=== PATIENT | male | born 1990 | race Caucasian/White ===

== ENCOUNTER 2018-01-23 14:40 | Emergency (ER) | payer OTHER, SELFPAY ==
[2018-01-23] VITALS (10 sets, daily range): BP systolic 122–163; BP diastolic 51–89; PULSE 53–86; RESP 12–18; TEMP 36.6; O2SAT 96–100; BMI 26.6
--- NOTE | 2018-01-23 15:07 | EKG12_ITS ---
Test Reason : CP Blood Pressure : / mmHG Vent. Rate : 067 BPM Atrial Rate : 067 BPM P-R Int : 152 ms QRS Dur : 112 ms QT Int : 394 ms P-R-T Axes : 012 055 018 degrees QTc Int : 416 ms Normal sinus rhythm Normal ECG Confirmed by AMY ANDRES, DOC ([id number]), news video editor JUAN SAAVEDRA ([id number]) on 01/27/2018 2:26:55 PM Referred By: MICHEL Confirmed By:DOC REYES MD
--- NOTE | 2018-01-23 15:11 | RAD_ITS ---
STUDY: X-RAY CHEST REASON FOR EXAM: Male, 27 years old. Shortness of breath. Dyspnea. Chest pain. Difficulty swallowing. TECHNIQUE: Single AP portable view of the chest. COMPARISON: None. FINDINGS: The lungs are clear and expanded. There is no demonstrated pleural abnormality. Normal size heart. Normal mediastinum and luz. Normal visualized pulmonary arteries. Normal visualized aortic arch and descending thoracic aorta. Normal visualized thoracic spine. Normal visualized ribs, clavicles, and shoulders. There is no demonstrated abnormality of the visualized soft tissue structures of the upper abdomen. RAD/Chest 1 View (Portable) IMPRESSION: Normal x-ray examination of the chest. Electronically Signed: Rocco Rogers DO at 16:47 EDT Tel [phone], Service support ,
--- NOTE | 2018-01-23 15:17 | ED.VISSUMM ---
- ER Visit Summary Date of Service: 01/23/18 Chief Complaint: Difficulty swallowing History of Present Illness: The patient is a 27 M presents with difficulty swallowing. Patient states 6 days ago he was eating boneless chicken wings. He states he did not chew thoroughly and felt 1 of the chicken wings get stuck. He has had difficulty swallowing foods since that time. He is able to swallow liquids. Went to [place] the ED on Saturday and had a chest x-ray was which was unremarkable. He does not have a primary care physician. He continues to have difficulty swallowing foods. He complains of chest pain when he tries to swallow. He has mild shortness of breath. Denies other complaints. Physical Examination: Vitals are stable. Patient is afebrile. Alert no acute distress. HEENT exam is unremarkable. Neck is supple. Lungs are clear and equal bilaterally. Heart is regular rate and rhythm. Abdomen is soft nontender nondistended. Extremities are unremarkable. Skin is warm and dry. No focal neurologic deficit. Remainder of exam is unremarkable. Emergency Department Course and Treatment: Patient was given glucagon IM. CBC, chemistries unremarkable. Troponin is negative. EKG is sinus rate 67 no acute ischemic changes. Chest x-ray shows no acute process. Discussed with Dr. Elder and Suzan who will evaluate the patient in the ED. Patient was consented for procedural sedation and endoscopy. He was given propofol for sedation. Endoscopy was performed by Dr. Elder. There is no foreign body visualized. There is a small abrasion to the distal esophagus. He is started on bismuth 4 times a day and will follow up with Dr. Elder. He is advised return to the ED for any worsening complaints. Disposition: Discharge home Impression: Dysphagia This note was generated with [employer] dictation software. It may contain incorrect words, spelling, and punctuation that were not noted in review of the chart prior to signing ED Disposition - Plan for ED Patient: Chief Complaint: Foreign Body Instructions: ED Foreign Body Esophageal Rslv Prescriptions: Bismuth Subsalicylate [Bismuth] 262 mg PO 4X/DAY 10 Days #1 oral.susp Referrals: Rosalie Elder MD [STAFF PHYSICIAN] - NOT,DEFINED [Primary Care Provider] -
[2018-01-23] MEDS: 0.9% Normal Saline 1,000 ML 1000 ML IV (15:36)
[2018-01-23] MEDS: Ondansetron 4 MG/2 ML Vial IV (15:36)
[2018-01-23] MEDS: Glucagon 1 MG/ML Syringe IM (15:36)
[2018-01-23 16:03] LABS: Absolute Lymphocyte Count 1.25 X10^3/ul (0.83-4.51); Absolute Neutrophil Count 3.7 X10^3/uL (2.0-7.7); Basophil# 0.02 X10^3/uL; Basophil% 0.4 % (0-1); Eosinophil# 0.05 X10^3/uL; Eosinophils% 0.9 % (0-5); Hematocrit 40.8 % (40-54); Lymphocyte # 1.25 X10^3/ul (4.0); Lymphocyte % 22.1 % (19-41); Mean Corp Hgb Conc 34.3 g/gl (32-36); Mean Corpuscular Hgb 31.1 pg (27.0-32.0); Mean Corpuscular Volume 90.7 fL (80-94); Mean Platelet Vol. 8.8 fl (6.2-12.0); Monocyte# 0.61 X10^3/uL; Monocyte% 10.8 % (0-10); Neutrophil # 3.72 X10^3/uL (2.7-7.7); Neutrophil % 65.8 % (47-70); Platelet Count 304 K/mm3 (150-450); RBC Distribution Width CV 12.3 % (11.6-14.6); RBC Distribution Width SD 40.9 fl (35.1-43.9); White Blood Count 5.7 K/mm3 (4.4-11.0)
[2018-01-23 16:05] LABS: POSITIVE COUNT NO; POSITIVE DIFFERENTIAL NO; POSITIVE MORPHOLOGY NO
[2018-01-23 16:18] LABS: Anion Gap 5 (5-15); BUN 18 mg/dL (7-18); BUN/Creat Ratio 14.6 RATIO (10-20); Calcium,Total 8.7 mg/dL (8.5-10.1); Chloride 106 mmol/L (98-107); Creatinine, Serum 1.23 mg/dL (0.70-1.30); EST Glomerular Filtration Rate 76 mL/min (>60); Est Glom Filt Rate - Afr Amer 92 mL/min (>60); Estimated Creatinine Clearance 94.79 ml/min; Glucose 80 mg/dL (74-106); Sodium Level 141 mmol/L (136-145)
--- NOTE | 2018-01-23 16:20 | ED.RN ---
GIVEN DRINL/ PT REPORTS STILL HAS PAIN WITH DRINKING LIKE SOMETHING REMAINS THERE
--- NOTE | 2018-01-23 16:43 | PCM.CONS.GEN ---
Reason for Consult Date of Consultation: 01/23/18 History of Present Illness: The patient is a 27 year old M presented to the ER due to lower chest pain after Saturday night eating up boneless chicken wing and like 3 bites he that we have caught in his lower esophagus but then he did think it was able to pass. So on Saturday he was able to eat fairly normally however on Saturday he was unable to eat any solids due to the pain and is lower chest midline about a 8/10 and as of yesterday he was also having pain with liquids that was at 5/10, up until then he was able to drink liquids. Denies ever having this issue before any history of any scope in the past. Past Medical History Allergies No Known Allergies Allergy (Verified 01/23/18 14:44) Home Medications: Ambulatory Orders Medication Instructions Recorded Bismuth Subsalicylate [Bismuth] 262 mg PO 4X/DAY 10 Days #1 01/23/18 oral.susp Multivitamin [Daily Multiple 1 each PO DAILY 01/23/18 Vitamin] Surgical History: no surgical history Psychiatric History: No pertinent psych hx Lives: With Family Smoking Status: Never smoker Review of Systems Constitutional: Denies: Fever HEENT: Reports: Difficulty Swallowing - Pain in the lower chest like food is sticking Cardiovascular: Reports: Chest Pain - Lower chest when trying to swallow liquids and especially solids Gastrointestinal: Denies: Abdominal Pain Genitourinary: Denies: Dysuria Musculoskeletal: Denies: Joint Pain - Physical Exam General: Alert, Oriented x3, Cooperative, No apparent distress HEENT: Atraumatic Lungs: Normal air movement Cardiovascular: Regular rate Abdomen: Soft, Non Tender - No guarding or rebound, Non-Distended Extremities: No clubbing, No cyanosis, No edema Skin: No rashes Vital Signs Temp Pulse Resp BP Pulse Ox 97.8 F 82 18 141/89 H 98 01/23/18 14:41 01/23/18 14:41 01/23/18 14:41 01/23/18 14:41 01/23/18 14:41 Oxygen Delivery Method Room Air Weight: 185 lb 6.54 oz Body Mass Index (BMI) 26.6 Laboratory Tests Past 24 Hrs 01/23/18 01/23/18 15:45 15:45 WBC 5.7 RBC 4.50 L Hgb 14.0 Hct 40.8 MCV 90.7 MCH 31.1 MCHC 34.3 RDW 12.3 RDW Differential 40.9 Plt Count 304 MPV 8.8 Immature Gran % (Auto) 0.000 Neut % (Auto) 65.8 Lymph % (Auto) 22.1 [place] % (Auto) 10.8 H Eos % (Auto) 0.9 Baso % (Auto) 0.4 Absolute Neuts (auto) 3.7 Absolute Lymphs (auto) 1.25 Total Counted Not Reportable Sodium 141 Potassium 4.0 Chloride 106 Carbon Dioxide 30.0 Anion Gap 5 BUN 18 Creatinine 1.23 Estim Creat Clear Calc 94.79 Est GFR (MDRD) Af Amer 92 Est GFR (MDRD) Non-Af 76 BUN/Creatinine Ratio 14.6 Glucose 80 Calcium 8.7 Troponin I < 0.015 Assessment/Plan 27 y/o with lower chest pain, probable esophageal foreign body- chicken 1. Discussed doing EGD to remove the probable chicken in his esophagus. Discussed the procedure including risk including but not limited to perforation, bleeding, and anesthesia. Patient and his mother do not have any further questions at this time. Rosalie Elder M.D. Pager: [phone] [facility] [address] [place] [address], [facility] [address] [place] [address] Office: [phone] Code Visit Inpatient E&M: 99342 Init Hosp L1
--- NOTE | 2018-01-23 16:51 | CON.PCM_ITS ---
Reason for Consult Date of Consultation: 01/23/18 History of Present Illness: The patient is a 27 year old M presented to the ER due to lower chest pain after Saturday night eating up boneless chicken wing and like 3 bites he that we have caught in his lower esophagus but then he did think it was able to pass. So on Saturday he was able to eat fairly normally however on Saturday he was unable to eat any solids due to the pain and is lower chest midline about a 8/ 10 and as of yesterday he was also having pain with liquids that was at 5/10, up until then he was able to drink liquids. Denies ever having this issue before any history of any scope in the past. Past Medical History Allergies No Known Allergies Allergy (Verified 01/23/18 14:44) Home Medications: Ambulatory Orders Medication Instructions Recorded Bismuth Subsalicylate [Bismuth] 262 mg PO 4X/DAY 10 Days #1 01/23/18 oral.susp Multivitamin [Daily Multiple 1 each PO DAILY 01/23/18 Vitamin] Surgical History: no surgical history Psychiatric History: No pertinent psych hx Lives: With Family Smoking Status: Never smoker Review of Systems Constitutional: Denies: Fever HEENT: Reports: Difficulty Swallowing - Pain in the lower chest like food is sticking Cardiovascular: Reports: Chest Pain - Lower chest when trying to swallow liquids and especially solids Gastrointestinal: Denies: Abdominal Pain Genitourinary: Denies: Dysuria Musculoskeletal: Denies: Joint Pain - Physical Exam General: Alert, Oriented x3, Cooperative, No apparent distress HEENT: Atraumatic Lungs: Normal air movement Cardiovascular: Regular rate Abdomen: Soft, Non Tender - No guarding or rebound, Non-Distended Extremities: No clubbing, No cyanosis, No edema Skin: No rashes Vital Signs Temp Pulse Resp BP Pulse Ox 97.8 F 82 18 141/89 H 98 01/23/18 14:41 01/23/18 14:41 01/23/18 14:41 01/23/18 14:41 01/23/18 14:41 Oxygen Delivery Method Room Air Weight: 185 lb 6.54 oz Body Mass Index (BMI) 26.6 Laboratory Tests Past 24 Hrs 01/23/18 01/23/18 15:45 15:45 WBC 5.7 RBC 4.50 L Hgb 14.0 Hct 40.8 MCV 90.7 MCH 31.1 MCHC 34.3 RDW 12.3 RDW Differential 40.9 Plt Count 304 MPV 8.8 Immature Gran % (Auto) 0.000 Neut % (Auto) 65.8 Lymph % (Auto) 22.1 [place] % (Auto) 10.8 H Eos % (Auto) 0.9 Baso % (Auto) 0.4 Absolute Neuts (auto) 3.7 Absolute Lymphs (auto) 1.25 Total Counted Not Reportable Sodium 141 Potassium 4.0 Chloride 106 Carbon Dioxide 30.0 Anion Gap 5 BUN 18 Creatinine 1.23 Estim Creat Clear Calc 94.79 Est GFR (MDRD) Af Amer 92 Est GFR (MDRD) Non-Af 76 BUN/Creatinine Ratio 14.6 Glucose 80 Calcium 8.7 Troponin I < 0.015 Assessment/Plan 27 y/o with lower chest pain, probable esophageal foreign body- chicken 1. Discussed doing EGD to remove the probable chicken in his esophagus. Discussed the procedure including risk including but not limited to perforation , bleeding, and anesthesia. Patient and his mother do not have any further questions at this time. Rosalie Elder M.D. Pager: [phone] [facility] [address] [place] [address], [facility] [address] [place] [address] Office: [phone] Code Visit Inpatient E&M: 04318 Init Hosp L1
--- NOTE | 2018-01-23 17:20 | ED.DEP ---
ED Disposition - Plan for ED Patient: Chief Complaint: Foreign Body Instructions: ED Foreign Body Esophageal Rslv Prescriptions: Bismuth Subsalicylate [Bismuth] 262 mg PO 4X/DAY 10 Days #1 oral.susp Referrals: NOT,DEFINED [Primary Care Provider] - Rosalie Elder MD [STAFF PHYSICIAN] -
--- NOTE | 2018-01-23 17:38 | PCM.OPRPT ---
Report of Operation Date of Procedure: 01/23/18 Pre-Operative Diagnosis: Esophageal foreign body, chest pain Post-Operative Diagnosis: Midesophagus superficial mucosal tear Surgery/Procedure Performed:: EGD Type of Anesthesia:: MAC Special Medications: Per Dr. Valente in ER Specimen's removed: None Estimated Blood Loss (mL): None Description of Procedure: Procedure: EGD, possible removal of FO in ER After obtaining informed consent, the endoscope was passed under direct visualization. Throughout the procedure, patient's blood pressure, pulse, oxygen saturations were monitored continuously by Dr. Valente-ER physician. The endoscope was introduced through the mouth and advanced to the body of the stomach. The upper GI endoscopy was accomplished without difficulty. Patient tolerated procedure well. Findings: There is no noted foreign body in the esophagus; however, there was superficial mucosal tear at 25 cm that was about 1/4 of the circumference of the esophagus and only a few millimeters in height. Stomach appeared normal Impression: 1. Superficial midesophagus mucosal tear at 25 cm-no foreign body 2. Normal stomach Recommendations: Bismuth 30 mL p.o. 4 times daily before meals (30 min) and at bedtime. Follow-up in 2 weeks in office and will plan for repeat EGD to make sure it is healing properly and possible biopsy if need be at that time. - Complications none
--- NOTE | 2018-01-23 17:54 | ED.RN ---
at 1745 this rn received report on pt post procedure. pt awake alert and speaking with family. oriented x4. pt sat up and o2 decreased from 5lnc to 2lnc. pt tolerating well. resting comfortably denies needs at this time.
[2018-01-23] MEDS: Propofol 200 MG/20 ML Vial IV BOLUS (18:02)
== END 2018-01-23 18:26 | disposition home or self-care (01) ==
PROVIDERS: Surgery; Emergency Provider Emergency Medicine
PROC: 0DJ08ZZ Inspection of Upper Intestinal Tract, Via Natural or Artificial Opening Endoscopic (ICD-10-PCS; CPT 43235; principal; 2018-01-23 14:40)
DX: S27.818A Other injury of esophagus (thoracic part), initial encounter (principal); X58.XXXA Exposure to other specified factors, initial encounter; Y93.9 Activity, unspecified; Y92.9 Unspecified place or not applicable
CPT/HCPCS: 43235; 71045; 80048; 84484; 85025; 93005; 96361; 96372; 96374; 99284; J7030; A4216; J1610; J2405